=== PATIENT | male | born 1990 | race Caucasian/White ===

== ENCOUNTER 2017-09-30 22:06 | Emergency (ER) | payer OTHER ==
[~2017-09-30] VITALS: Ht 182.9 cm; Wt 84.4 kg
[2017-09-30 22:14] VITALS: Ht 182.9 cm; Wt 84.4 kg
[2017-10-01 03:24] LABS: PLATELET COUNT 234 x10^3mcL (130-400); RED CELL DISTRIBUTION WIDTH 12.4 % (11.5-14.5)
[2017-10-01 03:27] LABS: BASOPHIL % 2.3 % (0-2)
[2017-10-01 03:31] LABS: CALCIUM 7.7 mg/dL (8.5-10.1); CARBON DIOXIDE 28.1 mmol/L (21-32); CHLORIDE SERUM 103 mmol/L (98-107); CREATININE SERUM 0.8 mg/dL (0.7-1.3); GFR1 > 60 mL/min; GLUCOSE SERUM 111 mg/dL (74-106); POTASSIUM SERUM 3.2 mmol/L (3.5-5.1); SODIUM SERUM 139 mmol/L (136-145)
[2017-10-01 03:36] LABS: ALKALINE PHOSPHATASE 49 U/L (46-116); ALT/SGPT 21 U/L (16-63); AST/SGOT 24 U/L (15-37); BILIRUBIN TOTAL 0.71 mg/dL (0.20-1.00); TOTAL PROTEIN, SERUM 6.6 g/dL (6.4-8.2)
[2017-10-01 03:44] LABS: ALBUMIN 3.3 g/dL (3.4-5.0)
[2017-10-01 05:19] VITALS: BP 124/79
== END 2017-10-01 05:19 | disposition home or self-care (01) ==
LOC: ED 22:06
PROVIDERS: Emergency Medicine
DX: B34.9 Viral infection, unspecified (principal)
CPT/HCPCS: 36415; 87804; J8597